=== PATIENT | female | born 1995 | race Caucasian/White ===

== ENCOUNTER 2025-03-10 06:20 | Emergency (ER) | payer MEDICAID, SELFPAY ==
[2025-03-10 06:21] VITALS: BMI 26.0
--- NOTE | 2025-03-10 06:23 | EKG_ITS ---
[facility] Test Date: 2025-03-10 Pat Name: JESSEE GUSMAN Department: Room: - Gender: Female Fourth Officer: : 1995 Requested By: ED Temporary Provider Order Number: [id number] Reading MD: ED Temporary Provider Measurements Intervals [place] Rate: 112 P: 77 CO: 152 QRS: 79 QRSD: 89 T: 45 QT: 308 QTc: 422 Interpretive Statements SINUS TACHYCARDIA ABNORMAL RHYTHM ECG No previous ECG available for comparison /store/[email or web address]/[id number]
[2025-03-10 06:50] VITALS: BP 143/89; PULSE 111; RESP 19; TEMP 37; O2SAT 99
--- NOTE | 2025-03-10 07:17 | XR_ITS ---
Examination: PA lateral chest 2 views Technique: Upright PA lateral chest 2 views Exam date and time: March 10, 2025 0741 hrs. Indications: Chest pain today Findings: Normal heart size. Lungs are clear. Osseous structures are intact Impression: No active disease
[2025-03-10 07:38] LABS: Amphetamine/Methamp Scrn,U Positive (Negative); Barbiturate Screen,Urine Negative (Negative); Benzodiazepines Screen,Urine Negative (Negative); Benzoylecgonine Screen, Ur Negative (Negative); Fentanyl Screen,Urine Negative (Negative); Opiate Screen,Urine Negative (Negative); THC Screen,Urine Positive (Negative)
[2025-03-10 08:07] LABS: Basophils # (Auto) 0.1 Thou/mm3 (0.0-0.2); Basophils % (Auto) 1 % (0-2.5); Eosinophils # (Auto) 0.3 Thou/mm3 (0.0-0.5); Eosinophils % (Auto) 3 % (0-10); Hematocrit 39.7 % (36.0-46.0); Hemoglobin 13.3 g/dL (12.0-16.0); Immature Granulocytes % (Auto) 0 % (0-0); Immature Granulocytes Auto 0.03 Thou/mm3 (0.00-0.00); Lymphocytes % (Auto) 20 % (10-50); Mean Corpuscular HGB Conc 33.5 g/dl (31.0-37.0); Mean Corpuscular Hemoglobin 31.1 pg (25.0-35.0); Mean Corpuscular Volume 93 fL (80-100); Monocytes # (Auto) 0.9 Thou/mm3 (0.0-0.8); Monocytes % (Auto) 9 % (0-12); Neutrophils # (Auto) 6.4 Thou/mm3 (1.8-7.7); Neutrophils % (Auto) 66 % (37-80); Nucleated Red Blood Cell % 0 /100 WBC (0); Platelet Count 247 Thou/mm3 (140-440); RDW Standard Deviation 44.7 fL (36.4-46.3); Red Blood Count 4.27 Miln/mm3 (4.00-5.20); White Blood Count 9.6 Thou/mm3 (3.6-11.0)
[2025-03-10 08:14] LABS: HCG,Qualitative Serum Negative
[2025-03-10 08:22] LABS: Alanine Aminotransferase 16 U/L (10-49); Albumin, Serum 4.5 gm/dL (3.5-5.0); Albumin/Globulin Ratio 1.6 (1.2-2.2); Alkaline Phosphatase 45 U/L (46-116); Anion Gap 6 (7-16); Aspartate Amino Transferase 24 U/L (0-34); BUN/Creatinine Ratio 16 Ratio (12-20); Bilirubin,Total 0.3 mg/dL (0.3-1.2); Blood Urea Nitrogen 13 mg/dL (9-23); Calcium 9.5 mg/dL (8.3-10.6); Calcium (Corrected) 9.5 mg/dL (8.5-10.1); Carbon Dioxide 29.3 mMol/L (20.0-31.0); Chloride 108 mMol/L (98-107); Creatinine (Component) 0.8 mg/dL (0.6-1.3); Globulin 2.9 gm/dL (2.3-3.5); Glucose 89 mg/dL (74-106); Osmolality,Calculated 284 (275-295); Potassium 4.1 mMol/L (3.4-5.1); Sodium 143 mMol/L (136-145); Thyroid Stimulating Hormone 0.98 uIU/mL (0.55-4.78); Total Protein 7.4 gm/dL (5.7-8.2); Troponin I < 0.002 ng/mL (0.0-0.045); eGFR > 60 See Note
--- NOTE | 2025-03-10 09:05 | EDNOTE_ITS ---
ED Anxiety RME/HPI General Chief Complaint: Arrhythmia/Palpitations Stated Complaint: PALPITATIONS Time Seen by Provider: 03/10/25 07:19 Arrival date/time: 03/10/25 06:20 30-year-old female with medical history significant for methamphetamine abuse presents to the emergency department today stating last methamphetamine use yesterday. Patient reports that she has had palpitations intermittently for the last year patient would like to be evaluated for this. Patient currently reports no chest pain or shortness of breath Limitations: no limitations Related Data Previous Rx's ?Medication ?Instructions ?Recorded clindamycin HCl 300 mg capsule 300 mg PO TID #21 caps 01/29/22 ibuprofen 600 mg tablet 600 mg PO TID PRN pain #30 t abs 01/29/22 Allergies Allergy/AdvReac Type Severity Reaction Status Date / Time No Known Allergies Allergy Verified 03/10/25 06:21 Review of Systems Review of Systems Systems Reviewed: All systems reviewed, normal except as documented Constitutional Constitutional: Reports system reviewed and no additional complaints, except as documented, Denies fever(s) and Denies headache(s) Eyes Eyes: Reports system reviewed and no additional complaints, except as documented and Denies blurry vision ENT Ears, Nose, Mouth, and Throat: Reports system reviewed and no additional complaints, except as documented, Denies headache(s), Denies nasal congestion and Denies nasal discharge Cardiovascular Cardiovascular: Reports system reviewed and no additional complaints, except as documented, Denies chest pain, Denies dyspnea and Reports other (Palpitations) Respiratory Respiratory: Reports system reviewed and no additional complaints, except as documented, Denies chest congestion, Denies cough and Denies dyspnea Gastrointestinal Gastrointestinal: Reports system reviewed and no additional complaints, except as documented and Denies abdominal pain Integumentary/Breasts Skin/Breast: Reports system reviewed and no additional complaints, except as documented and Denies rash Neurologic Neurologic: Reports system reviewed and no additional complaints, except as documented, Reports as per HPI and Denies headache(s) Psychiatric Psychiatric: Reports system reviewed and no additional complaints, except as documented and Reports anxiety Past Medical History Social History SMOKING STATUS: Current every day smoker ED Exam General Limitations: Present no limitations General appearance: Present alert and in no apparent distress Head Head exam: Present atraumatic, normocephalic and normal inspection Eye Eye exam: Present normal appearance, PERRL and EOMI; Absent conjunctival injection ENT ENT exam: Present normal exam, normal oropharynx and mucous membranes moist Neck Neck exam: Present normal inspection, full ROM and trachea midline Chest Chest inspection: Present normal inspection and symmetric chest wall rise Respiratory Respiratory exam: Present normal lung sounds bilaterally; Absent respiratory distress Cardiovascular Cardiovascular exam: Present regular rate, normal rhythm, tachycardia and normal heart sounds; Absent bradycardia, irregular rhythm, systolic murmur, diastolic murmur or JVD Abdominal Exam Abdominal exam: Present soft and normal bowel sounds; Absent distention, tenderness, guarding, rebound or rigidity Extremities Exam Extremities exam: Present normal inspection and full ROM Back Exam Back exam: Present normal inspection and full ROM Neurological Exam Neurological exam: Present alert, oriented X3 and CN II-XII intact Psychiatric Psychiatric exam: Present normal affect and normal mood Skin Skin exam: Present warm, dry, intact and normal color Course Quality Measures none Orders Category Date Time Status EKG (ED ONLY) *Do not use* NOW Care 03/10/25 06:24 Completed EKG (ED Only) Stat Exams 03/10/25 06:23 Draft XR chest 2V Stat Exams 03/10/25 07:17 Completed CBC Stat Lab 03/10/25 07:29 Completed Comprehensive Metabolic Panel Stat Lab 03/10/25 07:29 Completed Drug Screen,Urine Stat Lab 03/10/25 07:20 Completed Free T4 (Free Thyroxine) Stat Lab 03/10/25 07:29 Completed HCG,Qualitative Serum Stat Lab 03/10/25 07:29 Completed TSH [Thyroid Stimulating Hormone] Stat Lab 03/10/25 07:29 Completed Troponin I Stat Lab 03/10/25 07:29 Completed Vital Signs Vital signs: Vital Signs Temperature 98.6 F 03/10/25 06:50 Pulse Rate 111 H 03/10/25 06:50 Respiratory Rate 19 03/10/25 06:50 Blood Pressure 143/89 H 03/10/25 06:50 Pulse Oximetry (%) 99 03/10/25 06:50 Oxygen Delivery Method Room Air 03/10/25 06:50 O2 saturation 99% room air within the limits Procedures -ED EKG Interpretation #1: Date of EK03/10/25 Time of EK:55 Rate: 112 Interpretation: Interpreted by me EKG Impression: No acute ST-T changes, No ectopy, No ischemic changes, Sinus tachycardia, Normal QRS, Normal intervals and Normal axis Anxiety MDM Narrative MDM Narrative: 30-year-old female with medical history significant for methamphetamine abuse presents to the emergency department today stating last methamphetamine use yesterday. Patient reports that she has had palpitations intermittently for the last year patient would like to be evaluated for this. Patient currently reports no chest pain or shortness of breath Lab work and imaging obtained no acute emergent findings noted EKG shows sinus tachycardia Explained to the patient she needs to refrain from methamphetamine abuse and follow-up with cardiology for emergent concerns she is instructed return immediately Patient data External records reviewed:: [facility] previous records Clinical information provided by:: patient Social determinants that could affect healthcare access:: substance use Patient has the following chronic illnesses:: Substance abuse How is presenting disease/condition affected by chronic disease/condition?: exacerbated by Evaluation data The following diagnostics were reviewed and interpreted by me:: lab results, radiology exam(s) and EKG tracing(s) Lab and/or radiology exams considered but not ordered:: Labs, radiology, EKG obtained Interpretation Summary: Reviewed by me Medications / Prescriptions Medications or Prescriptions considered but not ordered:: No meds Medication administrations:: No meds Consultations Consultation(s) initiated? (list below): No Diagnosis Differential diagnosis anxiety: hyperventilation, panic disorder and acute anxiety Most likely diagnosis given after review of the tests above:: Methamphetamine use, tachycardia Admission Indicated Admission indicated?: not indicated Admission Request Was there a request for admission?: No Disposition Plan Disposition Plan: Discharge Discharge Attestation Discharge Attestation: The patient and all family members were given an opportunity to ask questions and understood the discharge instructions. Discharge instructions specifically effects, indications for sooner follow up or return to the emergency department, and the expected course of current diagnosis. Patient condition: Stable Discharge Plan Plan Patient Disposition: HOME (Self Care) Disposition Comment: Stable Prescriptions/Referrals Prescriptions/Med Rec: No Action clindamycin HCl 300 mg capsule 300 mg PO TID Qty: 21 0RF ibuprofen 600 mg tablet 600 mg PO TID PRN (Reason: pain) Qty: 30 0RF Referrals: Malvin Gaspar MD [Primary Care Provider] - 03/12/25 Problem List Clinical Impression: Sinus tachycardia, Methamphetamine use Patient/Caregiver Discharge Instructions Education Materials: ED Drug Abuse Additional Instructions: Please follow up with your primary care doctor in the next 24-48hrs for any worsening symptoms return here immediately Please refrain from alcohol and drug abuse and follow-up with cardiology as discussed Print Language: Mongolian Stand Alone Forms: Marley Award Info., Patient Portal Info Letter PA/[employer] SERVICE KITCHEN SUPERVISOR Supervising Physician VIKTORIYA/[employer] SERVICE KITCHEN SUPERVISOR Supervising Physician: Dr Ribera
[2025-03-10 09:33] VITALS: BP 135/87; PULSE 114; RESP 14; TEMP 36.7; O2SAT 98
== END 2025-03-10 09:37 | disposition home or self-care (01) ==
PROVIDERS: Nurse Practitioner Primary Care; Emergency Provider Emergency Medicine; PCP Family Medicine
DX: R00.0 Tachycardia, unspecified (principal); F15.90 Other stimulant use, unspecified, uncomplicated; R07.9 Chest pain, unspecified
CPT/HCPCS: 36415; 71046; 80053; 80307; 84439; 84443; 84484; 84703; 85025; 93005; 99283